=== PATIENT | female | born 1975 | race Two or more races ===

== ENCOUNTER 2020-07-25 14:42 | Emergency (ER) | payer MEDICAID, OTHER ==
[~2020-07-25] VITALS: Ht 162.6 cm; Wt 81.6 kg
[2020-07-25 15:16] LABS: Basophils # (auto) 0 10 ^3/uL (0-0.2); Basophils % (auto) 0.4 % (0.0-2.0); Eosinophils # (auto) 0.2 10 ^3/uL (0-0.8); Hemoglobin 12.2 g/dL (12.2-16.2); Lymphocytes # (auto) 1.1 10 ^3/uL (0.4-5.4); Red Cell Distribution Width 16.5 % (11.8-14.3); White Blood Cell 5.7 10^3/uL (4.4-10.8)
[2020-07-25 15:18] LABS: Eosinophils % (auto) 2.7 % (0.0-7.0); Hematocrit 37.4 % (36.0-46.0); Lymphocytes % (auto) 19.4 % (10.0-50.0); Mean Corpuscular Hemoglobin 25.1 pg (28.0-32.0); Mean Corpuscular Hgb Conc. 32.7 g/dL (32.0-36.0); Mean Corpuscular Volume 76.8 fL (80.0-100.0); Monocytes # (auto) 0.4 10 ^3/uL (0-1.3); Monocytes % (auto) 6.2 % (0.0-12.0); Neutrophils # (auto) 4.1 10 ^3/uL (1.6-8.6); Neutrophils % (auto) 71.3 % (37.0-80.0); Platelet Count (auto) 379 10^3/uL (140-450); Red Blood Cells 4.87 10^6/uL (4.0-5.20)
[2020-07-25 15:28] LABS: Urine Bacteria NONE SEEN /hpf (None Seen); Urine Blood 2+ /uL (Negative); Urine Mucus FEW (None Seen); Urine Specific Gravity 1.021 (1.001-1.035); Urine WBC 13 /hpf (0 - 5)
[2020-07-25 15:50] LABS: Albumin 3.7 g/dL (3.4-5.0); Anion Gap 8 (5-15); Blood Urea Nitrogen 9 mg/dL (7-18); Calcium 8.4 mg/dL (8.5-10.1); Carbon Dioxide 24 mmol/L (21-32); Chloride 108 mmol/L (98-107); Glucose 84 mg/dL (74-106); Potassium 3.5 mmol/L (3.5-5.1); Sodium 140 mmol/L (136-145)
[2020-07-25 15:56] LABS: Alanine Aminotransferase 40 U/L (13-56); Alkaline Phosphatase 109 U/L (45-117); Aspartate Aminotransferase 29 U/L (15-37); Bilirubin, Total 0.6 mg/dL (0.2-1.0); GFR African American 140 mL/min; GFR Non-African American 116 mL/min; Total Protein 7.6 g/dL (6.4-8.2)
[2020-07-25] MEDS ORDERED: ONDANSETRON ODT 4 MG TAB PO ONE (17:30)
[2020-07-25] MEDS ORDERED: ACETAMINOPHEN 500 MG TAB PO ONE (17:30)
[2020-07-26 00:26] VITALS: BP 104/37
== END 2020-07-26 02:53 | disposition home or self-care (01) ==
LOC: EDBD 14:42 → ER 14:42
DX: R10.13 Epigastric pain (principal)
CPT/HCPCS: 36415; 74176; 76700; 80053; 81001; 81025; 83690; 84484; 85025; 99285; Q0162